=== PATIENT | female | born 1965 | race Two or more races ===

== ENCOUNTER 2025-05-13 11:33 | Outpatient (CLI) | payer MEDICAID ==
[2025-05-13 12:10] LABS: Hematocrit 43.0 % (36.0-46.0); Hemoglobin 14.8 g/dL (12.2-16.2); Mean Corpuscular Hemoglobin 31.7 pg (28.0-32.0); Mean Corpuscular Volume 92.2 fL (80.0-100.0); Nucleated Red Blood Cells % 0.1 %
[2025-05-13 12:16] LABS: Urine Protein, UAD Negative (Negative)
[2025-05-13 12:45] LABS: Alanine Aminotransferase 20 U/L (7-40); Albumin 4.3 g/dL (3.2-4.8); Alkaline Phosphatase 125 U/L (46-116); Anion Gap 8 (5-15); BUN/Creatinine Ratio 15.9 (10.0-20.0); Bilirubin, Total 0.6 mg/dL (0.2-1.0); Blood Urea Nitrogen 13 mg/dL (9-23); Calcium 9.8 mg/dL (8.7-10.4); Carbon Dioxide 27 mmol/L (20-31); Chloride 108 mmol/L (98-107); Glucose 94 mg/dL (74-106); Magnesium 2.1 mg/dL (1.6-2.6); Potassium 4.6 mmol/L (3.5-5.1); Sodium 143 mmol/L (136-145); Total Protein 7.4 g/dL (5.7-8.2); Uric Acid 5.0 mg/dL (3.1-7.8)
[2025-05-13 12:58] LABS: Triglycerides 97 mg/dL (< 150)
[2025-05-13 13:00] LABS: HDL Cholesterol 58 mg/dL (40-59)
[2025-05-13 13:06] LABS: Cholesterol 217 mg/dL (< 200)
== END 2025-05-13 17:00 | disposition home or self-care (01) ==
LOC: LAB 11:33
PROVIDERS: ATTEND Internal Medicine
DX: K21.9 Gastro-esophageal reflux disease without esophagitis (principal); I83.93 Asymptomatic varicose veins of bilateral lower extremities; Z12.11 Encounter for screening for malignant neoplasm of colon; Z00.00 Encounter for general adult medical examination without abnormal findings; Z71.89 Other specified counseling
CPT/HCPCS: 36415; 80053; 80061; 81001; 82306; 82607; 82746; 83036; 83735; 84443; 84550; 85025; 87086